=== PATIENT | female | born 1970 | race Caucasian/White ===

== ENCOUNTER 2024-06-23 14:03 | Inpatient (IN) | payer OTHER, SELFPAY ==
[2024-06-23 14:17] VITALS: BP 000/00; PULSE 0; RESP 22; TEMP -17.7; TEMP 0; O2SAT 0; BMI 39.3
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
--- OUTSIDE RECORDS SUMMARY | 2024-06-23 14:25 | XMS_ITS | Clinical Summary ---
Author Organization [facility] Address [address] [place] [address] Phone Care Team Providers Care Motorcycle Service Technician Name Role Phone Unavailable Primary Care Provider Unavailabl e Surgical History Surgery Date Site/Laterality Comments SECTION, LOW TRANSVERSE COLPOSCOPY Medical History Medical History Date Comments Hypertension Nicole's disease Depression Social History Tobacco Use Types Packs/Day Years Used Date Smoking Tobacco: Never Assessed Sex and Gender Information Value Date Recorded Sex Assigned at Not on file Gender Identity Not on file Sexual Orientation Not on file Obstetrics History Plan of Treatment Health Maintenance Due Date Last Done Comments Hepatitis B Vaccines (1 of 3 - 19+ 3-dose series) 1989 Cervical Cancer Screening: Pap Smear 1991 Zoster Vaccines (2 of 2) 09/10/2022 07/16/2022 COVID-19 Vaccine ( - season) 2024 Influenza Vaccine (#1) 2024 , 04/02/2022, 04/26/2021, Additional history exists Colorectal Cancer Screening: Colonoscopy 06/03/2024 Depression Screening 06/03/2024 HIV Screening 06/03/2024 Social Influencers of Health Screening 06/03/2024 DTaP,Tdap,and Td Vaccines (2 - Td or Tdap) 07/30/2024 07/30/2014 Hypertension/CHF/CAD Annual BMP Blood Test 12/24/2024 12/25/2023, 06/06/2022, 08/19/2020, Additional history exists Breast Cancer Screening 11/30/2025 12/01/2023 Cholesterol Screening (Lipid Panel) 12/24/2028 12/25/2023 Hepatitis C Screening Completed 08/19/2020 HIB Vaccines Aged Out No longer eligi ble based on patient's age to complete this topic HPV Vaccines Aged Out No longer eligi ble based on patient's age to complete this topic Hepatitis A Vaccines Aged Out No long er eligible based on patient's age to complete this topic IPV Vaccines Aged Out No longer eligi ble based on patient's age to complete this topic MMR Vaccines Aged Out No longer eligi ble based on patient's age to complete this topic Meningococcal ACWY Vaccine Aged Out N o longer eligible based on patient's age to complete this topic Pneumococcal Vaccine: Pediatrics (0 to 5 Years) and At-Risk Patients (6 to 64 Years) Aged Out No longer eligible based on patient's age to complete this topic RSV Immunization Patients Under 20 months Aged Out No longer eligible based on patient's age to complete this topic Varicella Vaccines Aged Out No longer eligible based on patient's age to complete this topic
[2024-06-23] MEDS: Haloperidol Lactate 5 MG/ML VIAL IM ×2 (14:29)
[2024-06-23] MEDS: LORazepam 2 MG/ML VIAL IM (14:31)
[2024-06-23] MEDS: diphenhydrAMINE HCL 50 MG/ML VIAL IM (14:31)
--- NOTE | 2024-06-23 14:43 | PC.NURSE ---
Spouse, Esther called to leave phone number for staff [phone].
--- NOTE | 2024-06-23 14:44 | PC.NURSE ---
Patient was section-12 brought at 14:05 by ems staff and police also at bedside was provider and chagre nurse as well as this nurse. Patient was verbally and physically aggressive with staff, refusing to cooperate with care. Provider stated patient needed to be restrained and medication administered. 10 mg of haldol, 2 mg of ativan and 50 mg of benadryl was administered IM. Patient was placed in restarints and 1:[address] Skin checks were completed and patients resp were even and unlabored. Patient was offered something to drink as well as bathroom. Patient at this time remains in restraints with 1:1 will continue to monitor. Charge nurse and warehouse technician have been made aware.
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
[2024-06-23 16:31] LABS: MANUAL DIFF FLAG NO
[2024-06-23 16:38] LABS: Basophils Percent Auto 0.2 % (0-2); Eosinophils Absolute Auto 0.1 X10*3/uL (0.0-0.4); Eosinophils Percent Auto 0.7 % (0-4); Hematocrit 39.6 % (37.0-47.0); Hemoglobin 13.6 g/dl (12.0-16.0); Imm Gran Abs Auto 0.06 X10*3/uL (0.00-0.03); Imm Gran Pct Auto 0.4 % (0.0-0.4); Lymphocytes Absolute Auto 1.5 X10*3/uL (1.2-4.9); Mean Corpuscular HGB Conc 34.3 g/dl (31.0-35.0); Mean Corpuscular Hemoglobin 29.2 pg (27.0-33.0); Mean Platelet Volume 9.5 fL (9.4-12.3); Monocytes Absolute Auto 0.8 X10*3/uL (0.1-1.2); Monocytes Percent Auto 5.4 % (2-11); Neutrophils Absolute Auto 12.2 x10*3/uL (2.0-8.3); Neutrophils Percent Auto 83.3 % (45-73); Platelet Count 277 X10*3/uL (160-400); Red Blood Count 4.66 X10*6/uL (4.20-5.50); Red Cell Distribution Width 13.2 % (11.0-16.0); White Blood Count 14.7 X10*3/uL (4.8-10.8)
[2024-06-23 16:38] LABS: Carbon Monoxide POC 2.7 %
[2024-06-23 16:39] LABS: Carbon Monoxide Refer to POC result
--- NOTE | 2024-06-23 16:47 | PC.NURSE ---
restraints removed at 1545 and pt has been calm and cooperative since and currently sleeping
[2024-06-23 16:48] LABS: Amphetamine Screen Urine POSITIVE (Not Detect); Barbiturates, Urine Not Detected (Not Detect); Benzodiazepines Screen Urine Not Detected (Not Detect); Buprenorphine Scr Not Detected (Not Detect); Cannabinoid Screen Urine POSITIVE (Not Detect); Cocaine Screen Urine Not Detected (Not Detect); Fentanyl, urine Not Detected (Not Detect); Methadone Screen, Urine Not Detected (Not Detect); Opiate Screen Urine Not Detected (Not Detect); Oxycodone Screen Urine Not Detected (Not Detect); Phencyclidine Screen Urine Not Detected (Not Detect)
[2024-06-23 17:02] VITALS: BP 115/60; PULSE 70; RESP 14; TEMP 36.6; O2SAT 96
[2024-06-23 17:02] LABS: Alanine Aminotransferase 19 U/L (0-31); Anion Gap 13 (12-20); Aspartate Amino Transferase 23 U/L (5-31); Bilirubin Total 0.3 mg/dL (0.0-1.0); Blood Urea Nitrogen 12 mg/dL (9-16); Calcium 9.4 mg/dL (8.4-10.2); Carbon Dioxide 21 mmol/L (22-29); Chloride 110 mmol/L (96-108); Creatinine Clr Calc Pharmacy 107.9; Estimated Glomerular Filt Rate > 60; Ethanol < 10 mg/dL; Glucose Random 94 mg/dL (60-115); Magnesium 1.9 mg/dL (1.6-2.6); Sodium 140 mmol/L (135-145); Total Protein 7.2 g/dL (6.5-8.0)
[2024-06-23 17:22] LABS: Alkaline Phosphatase 86 U/L (39-117)
--- NOTE | 2024-06-23 20:58 | PHA.MEDREC ---
Pharmacy Consult ? Medication Reconciliation Pharmacy has completed the medication reconciliation. Reviewed med rec done by nursing
[2024-06-24 05:50] VITALS: BP 137/90; PULSE 68; RESP 18; TEMP 36.5; O2SAT 97
[2024-06-24] MEDS: Levothyroxine Sodium 25 MCG TABLET PO (05:50)
--- NOTE | 2024-06-24 05:56 | PC.NURSE ---
Addendum entered by Amira Back RN 06/24/24 06:35: pt evaluated by [facility] on 06/23/24, evaluation in chart. Original Note: pt calm and cooperative, slept well throughout the night, symmetrical rise and fall of chest and unlabored respirations noted. pt did not display any behavioral concerns or symptoms of concern. Plan of care ongoing.
--- NOTE | 2024-06-24 07:04 | PC.NURSE ---
Assumed care of patient at 0645, patient appears to be sleeping, respirations even and unlabored, no apparent distress is noted. Continue plan of care for IPLOC
[2024-06-24 08:27] LABS: Appearance Urine Turbid; Color Urine Yellow; Glucose Urine UA Negative (Negative); Leukocyte Esterase Urine Negative (Negative); Nitrite Urine Negative (Negative); PH 5.5 (5.0-9.0); Specific Gravity - Urine >= 1.030 (1.005-1.025); UMIC TRIGGER UA YES; Urine Blood Negative (Negative); Urine Ketones Negative (Negative); Urine Protein 30 (1+) mg/dL (Neg-Trace)
[2024-06-24 08:37] LABS: Bacteria Urine None Seen (None Seen); RBC Urine 0-2 /HPF (0-2); WBC Urine 0-5 /HPF (0-5)
[2024-06-24] MEDS: DULoxetine HCl 60 MG CAPSULE.DR PO (09:53)
--- NOTE | 2024-06-24 09:57 | PC.NURSE ---
Patient refused most morning medicaitons, states she does not take most of the medications that she is prescribed
--- NOTE | 2024-06-24 09:58 | PC.NURSE ---
Pt noted to have significant swelling and bruising on bilateral wrists. Pt was in handcuffs prior to arrival to the Emergency Department and was subsequently placed in restraints here in the pod. Patient denies significant pain to either wrist, ROM present in both. Patient denies pain upon palpation. Patient more concerned about discharge
--- NOTE | 2024-06-24 11:06 | PC.NURSE ---
Patient refused to do EKG
--- NOTE | 2024-06-24 11:22 | MHC.CARE ---
Pt will be an inpatient bedsearch.
[2024-06-24] MEDS: Gabapentin 100 MG CAPSULE PO (15:44)
--- NOTE | 2024-06-24 16:29 | PC.NURSE ---
Pt given PRN Gabapentin in preparation to go upstairs, FLORENTIN Solo aware
[2024-06-24 16:40] VITALS: BP 153/109; PULSE 90; RESP 18; TEMP 36.2; O2SAT 99
[2024-06-24] MEDS: Acetaminophen 325 MG TABLET 650 MG PO (17:06)
[2024-06-24 17:54] VITALS: BMI 37.6
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
[2024-06-24 20:00] VITALS: BP 149/80; PULSE 85; TEMP 36.4; O2SAT 98
[2024-06-25] MEDS: Levothyroxine Sodium 25 MCG TABLET PO (07:08)
[2024-06-25 08:00] VITALS: BP 139/96; PULSE 93; RESP 18; TEMP 36.4; O2SAT 98
[2024-06-25 08:16] LABS: Estimated Average Glucose 105 mg/dL; Hemoglobin A1C 136.4316 umol/L; Hemoglobin A1c % 5.3 % (<6.0); Total Hemoglobin (HGBA1C) 4020.1388 umol/L
[2024-06-25 08:24] LABS: Cholesterol 157 mg/dL (<200); HDL Cholesterol 56 mg/dL (>40); LDL Cholesterol Calculated 69 mg/dL (<100); Magnesium 1.9 mg/dL (1.6-2.6); Triglycerides 160 mg/dL (<150)
[2024-06-25 08:41] LABS: Free T4 (Free Thyroxine) 1.33 ng/dL (0.71-1.85); Thyroid Stimulating Hormone 3.84 uIU/mL (0.32-4.0)
[2024-06-25 08:53] LABS: Folate 10.1 ng/mL (> or = 4.0); Vitamin B12 475 pg/mL (200-900)
[2024-06-25] MEDS: DULoxetine HCl 60 MG CAPSULE.DR PO (09:07)
[2024-06-25] MEDS: Amphetamine Mixed Salts 20 MG TABLET PO (09:07)
[2024-06-25] MEDS: Flu Vacc TS2024-25(6mos up)/PF 0.5 ML SYRINGE IM (12:17)
[2024-06-25] MEDS: Acetaminophen 325 MG TABLET 650 MG PO (12:28)
[2024-06-25] MEDS: Gabapentin 100 MG CAPSULE PO (13:21)
[2024-06-25] MEDS: LORazepam 1 MG TABLET PO (13:35)
--- NOTE | 2024-06-25 14:06 | HO.PSYADMNOT ---
HPI Date of Service: 06/25/24 Chief Complaint: SECTION 12 SI UNCOOPERATIVE Sources of Information: patient interviewed and crisis/core team assessment reviewed HPI Narrative: Pt is a 51 yo female with hx of depression who presents to ED after [facility] (and ) had concerns for SI. Pt reports that she's been depressed and anxious over past months, both worsening post-Trump election. She endorses decreased energy, interest, appetite, sleep but denies any SI. Anxiety became overwhelming past weeks after Trump took office as she's worried about the rights of LGBT community which include her children. She says she agreed to go to [facility] for help with medication changes; she says her wanted her to go to [facility] due to some mistaken idea that she was suicidal, though patient is adamant she has no idea why (other than her wifes chronic anxiety). Pt says at [facility] the staff and insisted that she was suicidal and called 911 for her to go to ED. Patient became irate and refused to go; police insisted and pt was restrained to get her to ED and once she got to ED. Pt agrees that possibly, in the heat of anger with police she may have said something suicidal regarding her fathers gun...however she says she was not actually suicidal, was never feeling this way and would never kill herself, loving her son and family. She flately denies she made any other SI statements at all and wants discharge. Denies drug/alcohol. Collateral reports pt sent several text messages to family and friends, and endorsed plan to OD on medications, poisoning by carbon monoxide, and/or shooting self with her father's gun. Per report, collateral obtained with pt's , who stated that pt began to decompensate about two months ago surrounding the election, which worsened following the election results. Per report, pt fearful for her safety, as well as the safety of her and transgender child. Pt reportedly made statements of fear that her family would be sent to a concentration camp. In ED, patient told staff regarding SI, that she had some thoughts a few days ago but stated I don't anymore. 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 one bio son 19 3 step kids 22, 21, 13 Substance History: denies Trauma History: deferred Diagnostics Vital Signs (24Hr): Vital Signs - 24 hr 06/24/24 16:40 06/24/24 20:00 06/25/24 08:00 Temperature 97.2 F 97.5 F 97.5 F Pulse Rate 90 85 93 Respiratory Rate 18 18 Blood Pressure 153/109 H 149/80 H 139/96 H Pulse Oximetry 99 98 98 Oxygen Delivery Method Room Air Room Air Room Air BMI result Body Mass Index 37.6 Labs 06/23/24 16:24 06/23/24 16:24 Labs: Laboratory Results - last 48 hr 06/23/24 06/23/24 06/23/24 16:10 16:24 16:30 WBC 14.7 H RBC 4.66 Hgb 13.6 Hct 39.6 MCV 85.0 MCH 29.2 MCHC 34.3 RDW 13.2 Plt Count 277 MPV 9.5 Immature Gran % (Auto) 0.4 Neut % (Auto) 83.3 H Lymph % (Auto) 10.0 L [place] % (Auto) 5.4 Eos % (Auto) 0.7 Baso % (Auto) 0.2 Lymph # (Auto) 1.5 [place] # (Auto) 0.8 Eos # (Auto) 0.1 Baso # (Auto) 0.0 Abs Immat Gran (auto) 0.06 H Absolute Neuts (auto) 12.2 H Absolute Nucleated RBC 0.000 Nucleated RBC % (auto) 0.0 Carboxyhemoglobin % 2.7 Sodium 140 Potassium 4.0 Chloride 110 H Carbon Dioxide 21 L Anion Gap 13 BUN 12 Creatinine 0.65 Estim Creat Clear Calc 107.9 Estimated GFR > 60 Random Glucose 94 Estimat Average Glucose Hemoglobin A1c % Calcium 9.4 Magnesium 1.9 Total Bilirubin 0.3 AST 23 ALT 19 Alkaline Phosphatase 86 Total Protein 7.2 Albumin 4.0 Triglycerides Cholesterol LDL Cholesterol, Calc HDL Cholesterol Vitamin B12 Folate TSH Free T4 Urine Color Yellow Urine Appearance Turbid Urine pH 5.5 Ur Specific [place] >= 1.030 H Urine Protein 30 (1+) H Urine Glucose (UA) Negative Urine Ketones Negative Urine Blood Negative Urine Nitrite Negative Ur Leukocyte Esterase Negative Urine RBC 0-2 Urine WBC 0-5 Ur Squamous Epith Cells 6-10 Urine Bacteria None Seen Hyaline Casts 3-5 Urine Opiates Screen Not Detected Ur Buprenorphine Scrn Not Detected Ur Oxycodone Screen Not Detected Urine Methadone Screen Not Detected Urine Fentanyl Screen Not Detected Ur Barbiturates Screen Not Detected Ur Phencyclidine Scrn Not Detected Ur Amphetamines Screen POSITIVE H U Benzodiazepines Scrn Not Detected Urine Cocaine Screen Not Detected U Marijuana (THC) Screen POSITIVE H Ethyl Alcohol < 10 06/25/24 07:47 WBC RBC Hgb Hct MCV MCH MCHC RDW Plt Count MPV Immature Gran % (Auto) Neut % (Auto) Lymph % (Auto) [place] % (Auto) Eos % (Auto) Baso % (Auto) Lymph # (Auto) [place] # (Auto) Eos # (Auto) Baso # (Auto) Abs Immat Gran (auto) Absolute Neuts (auto) Absolute Nucleated RBC Nucleated RBC % (auto) Carboxyhemoglobin % Sodium Potassium Chloride Carbon Dioxide Anion Gap BUN Creatinine Estim Creat Clear Calc Estimated GFR Random Glucose Estimat Average Glucose 105 Hemoglobin A1c % 5.3 Calcium Magnesium 1.9 Total Bilirubin AST ALT Alkaline Phosphatase Total Protein Albumin Triglycerides 160 H Cholesterol 157 LDL Cholesterol, Calc 69 HDL Cholesterol 56 Vitamin B12 475 Folate 10.1 TSH 3.84 Free T4 1.33 Urine Color Urine Appearance Urine pH Ur Specific [place] Urine Protein Urine Glucose (UA) Urine Ketones Urine Blood Urine Nitrite Ur Leukocyte Esterase Urine RBC Urine WBC Ur Squamous Epith Cells Urine Bacteria Hyaline Casts Urine Opiates Screen Ur Buprenorphine Scrn Ur Oxycodone Screen Urine Methadone Screen Urine Fentanyl Screen Ur Barbiturates Screen Ur Phencyclidine Scrn Ur Amphetamines Screen U Benzodiazepines Scrn Urine Cocaine Screen U Marijuana (THC) Screen Ethyl Alcohol Meds/Allergies Meds Home Medications ?Medication ?Instructions ?Recorded ?Confirmed ?Type celecoxib 200 mg capsule 200 mg PO DAILY 06/23/24 06/23/24 History dextroamphetamine-amphetamine 20 1 tab PO BID 06/23/24 06/23/24 History mg tablet duloxetine 60 mg capsule,delayed 60 mg PO DAILY 06/23/24 06/23/24 History release gabapentin 100 mg capsule 100 mg PO BID PRN Pain 06/23/24 06/23/24 History hydroxyzine HCl 50 mg tablet 50 mg PO DAILY PRN Anxiety 06/23/24 06/23/24 History levothyroxine 25 mcg tablet 25 mcg PO DAILY 06/23/24 06/23/24 History semaglutide (weight loss) 0.25 0.25 mg subcut QWEEK 06/23/24 06/23/24 History mg/0.5 mL subcutaneous pen injector (Wegovy) quetiapine 50 mg tablet 50 mg PO BEDTIME 06/25/24 06/25/24 History Allergies Allergies Allergy/AdvReac Type Severity Reaction Status Date / Time No Known Drug Allergies Allergy Unknown UNKNOWN Verified 06/23/24 14:21 [NO KNOWN DRUG ALLERGIES] Mental Status Exam Mental Status Exam Narrative: Pt is alert and oriented; behavior is irritable, cooperative, calm; patient is not in distress; dressed in casual attire with unkempt hair but adequate hygiene; mood is described as irritable and affect congruent,constricted; eye contact appropriate; Speech is normal rate, volume and prosody and not pressured; no psychomotor agitation/retardation present; thought process is organized and goal directed; Thought content is on wrongness of this admission; fears of Trump administration, discharge; tx; otherwise pertinent to relevant topics and without any delusional content, paranoid ideations or grandiosity; denies any SI/HI. There is no evidence of perceptual disturbance. Patients insight and judgment impaired. Assessment & Plan Assessment & Plan (1) MDD (major depressive disorder), recurrent severe, without psychosis: Status: Acute Code(s): F33.2 - Major depressive disorder, recurrent severe without psychotic features Plan HPI: Pt is a 51 yo female with hx of depression who presents to ED after [facility] (and ) had concerns for SI. Pt reports that she's been depressed and anxious over past months, both worsening post-Trump election. She endorses decreased energy, interest, appetite, sleep but denies any SI. Anxiety became overwhelming past weeks after Trump took office as she's worried about the rights of LGBT community which include her children. She says she agreed to go to [facility] for help with medication changes; she says her wanted her to go to [facility] due to some mistaken idea that she was suicidal, though patient is adamant she has no idea why (other than her wifes chronic anxiety). Pt says at [facility] the staff and insisted that she was suicidal and called 911 for her to go to ED. Patient became irate and refused to go; police insisted and pt was restrained to get her to ED and once she got to ED. Pt agrees that possibly, in the heat of anger with police she may have said something suicidal regarding her fathers gun...however she says she was not actually suicidal, was never feeling this way and would never kill herself, loving her son and family. She flately denies she made any other SI statements at all and wants discharge. Denies drug/alcohol. Collateral reports pt sent several text messages to family and friends, and endorsed plan to OD on medications, poisoning by carbon monoxide, and/or shooting self with her father's gun. Per report, collateral obtained with pt's , who stated that pt began to decompensate about two months ago surrounding the election, which worsened following the election results. Per report, pt fearful for her safety, as well as the safety of her and transgender child. Pt reportedly made statements of fear that her family would be sent to a concentration camp. In ED, patient told staff regarding SI, that she had some thoughts a few days ago but stated I don't anymore. Impression: pt adamantly denies any recent or past SI. She maintains that her partner has misinterpreted and grossly exaggerating anything patient may have said. She agrees she struggles with depression/anxiety but as not SI wants discharge and to work out her treatment w/ outpt providers. Pt is very unhappy with staff on unit feeling ignored and uncared for. Pt does give verbal and written permission to discuss case with her and mother. PLAN: 3 day q15 min continue home med regimen will seek collateral Patient educated on: diagnosis and medication risk/benefits Informed Consent: understands and further education needed Reason for continued inpatient stay Substantial Risk for: rapid decompensation Statement Statement: I have reviewed the history and physical and performed a pertinent examination on my patient. No changes have occurred unless specified. If the History and Physical was not performed prior to admission, the Hospitalist's service will be consulted for completing the admission physical. Time Spent With Patient Time: Total time managing care of this patient today ____ minutes.
[2024-06-25 15:51] VITALS: BP 134/92
[2024-06-25] MEDS: cloNIDine HCL 0.1 MG TABLET PO ×2 (15:51→22:09)
[2024-06-25 19:51] VITALS: BP 152/93; PULSE 84; TEMP 36.8; O2SAT 96
[2024-06-25] MEDS: QUEtiapine Fumarate 50 MG TABLET PO (22:08)
[2024-06-25 22:09] VITALS: BP 154/90
[2024-06-25] MEDS: traZODone HCL 50 MG TABLET PO (22:09)
[2024-06-26] MEDS: Acetaminophen 325 MG TABLET 650 MG PO (06:55)
[2024-06-26 08:00] VITALS: BP 95/53; PULSE 72; RESP 16; TEMP 36.4; O2SAT 96
[2024-06-26] MEDS: DULoxetine HCl 60 MG CAPSULE.DR PO (09:04)
[2024-06-26] MEDS: Amphetamine Mixed Salts 20 MG TABLET PO ×2 (09:04→15:02)
[2024-06-26 09:05] VITALS: BP 128/84
[2024-06-26] MEDS: Valsartan 80 MG TABLET PO (09:05)
[2024-06-26 09:25] VITALS: BP 128/85
[2024-06-26] MEDS: cloNIDine HCL 0.1 MG TABLET PO ×4 (09:25→20:57)
--- NOTE | 2024-06-26 10:08 | P.PNPSI_ITS ---
Subjective Subjective Date of Service: 06/26/24 Reason For Visit: SECTION 12 SI UNCOOPERATIVE Interim History: Patient; discussed with team Patient much more able and willing to engage, polite, forthcoming. Discussed more of the events leading up to this admission and her very deep worries and concerns about being heavily discriminated against in the current political atmosphere. Discussed her intense reactions to family who had a strong political persuasion which left patient feeling on cared about. She acknowledges she texted family members about it. She feels supported by her father but his healthcare issues, lung cancer are contributing to patient's stress. Patient decided to remain on the unit longer for treatment, very much wanting help with medications. Reviewed medications, history and patient agreed that increasing Cymbalta was likely the best option at this time. Also agreed to get off Abilify and Seroquel; instead will try trazodone for sleep and Zyprexa as a p.r.n. if she feels on the verge of getting out of control; also clonidine for sleep and moderate anxiety. Discussed work which patient very much enjoys and feels good at and has been successful; likes her coworkers. Patient feels that at work she is able to focus on the task at hand and gets a temporary reprieve from worries. Medication history Zoloft: Jittery Prozac 80 mg worked well for 20 years but then no longer was effective; has been off for 45 years. Did cause excessive sweatiness Mental Status Exam Mental Status Exam Narrative: Pt is alert and oriented; behavior is calm, cooperative, wanting to engage; patient is not in distress; dressed in casual attire with unkempt hair but adequate hygiene; mood is described as a little better and affect congruent,constricted, but more calm; eye contact appropriate; Speech is normal rate, volume and prosody and not pressured; no psychomotor agitation/retardation present; thought process is organized and goal directed; Thought content is dealing with anxious and depressive symptoms; fears of current political atmosphere; tx; otherwise pertinent to relevant topics and without any delusional content, paranoid ideations or grandiosity; denies any SI/HI. Denies AVH and there is no evidence of perceptual disturbance. Patients insight and judgment impaired but improving. Diagnostics Vital Signs (24Hr): Vital Signs - 24 hr 06/25/24 15:51 06/25/24 19:51 06/25/24 22:09 Temperature 98.2 F Pulse Rate 84 Blood Pressure 134/92 H 152/93 H 154/90 H Pulse Oximetry 96 Oxygen Delivery Method Room Air 06/26/24 09:05 06/26/24 09:25 Temperature Pulse Rate Blood Pressure 128/84 128/85 Pulse Oximetry Oxygen Delivery Method BMI result Body Mass Index 37.6 Labs 06/23/24 16:24 06/23/24 16:24 Labs: Laboratory Results - last 48 hr 06/25/24 07:47 Estimat Average Glucose 105 Hemoglobin A1c % 5.3 Magnesium 1.9 Triglycerides 160 H Cholesterol 157 LDL Cholesterol, Calc 69 HDL Cholesterol 56 Vitamin B12 475 Folate 10.1 TSH 3.84 Free T4 1.33 Medications Medications Current Medications Acetaminophen (Acetaminophen 325 Mg Tablet) 650 mg PO Q6H PRN PRN Reason: Headache/Pain Mild Scale (1-3) Last Admin: 06/26/24 06:55 Dose: 650 mg Al Hydroxide/Mg Hydroxide (Magnesium Hydrox/Alum Hydrox 30 Ml Oral.Susp) 30 ml PO Q6H PRN PRN Reason: Heartburn/Nausea Amphetamine/Dextroamphetamine (Amphetamine Mixed Salts 20 Mg Tablet) 20 mg PO BID@0900,1500 [facility] Last Admin: 06/26/24 09:04 Dose: 20 mg Celecoxib (Celecoxib 200 Mg Capsule) 200 mg PO DAILY [facility] Last Admin: 06/26/24 09:40 Dose: Not Given Clonidine HCl (Clonidine Hcl 0.1 Mg Tablet) 0.1 mg PO Q4H PRN; Protocol PRN Reason: moderate anxiety Last Admin: 06/26/24 09:25 Dose: 0.1 mg Duloxetine HCl (Duloxetine Hcl 60 Mg Capsule.Dr) 60 mg PO DAILY [facility] Last Admin: 06/26/24 09:04 Dose: 60 mg Escitalopram Oxalate (Escitalopram Oxalate 5 Mg Tablet) 5 mg PO DAILY [facility] Last Admin: 06/26/24 09:40 Dose: Not Given Gabapentin (Gabapentin 100 Mg Capsule) 100 mg PO BID PRN PRN Reason: Pain, Moderate(Pain Scale 4-6) Last Admin: 06/25/24 13:21 Dose: 100 mg Hydroxyzine HCl (Hydroxyzine Hcl 50 Mg Tablet) 50 mg PO DAILY PRN PRN Reason: Anxiety Hydroxyzine HCl (Hydroxyzine Hcl 25 Mg Tablet) 25 mg PO Q6H PRN PRN Reason: Anxiety Levothyroxine Sodium (Levothyroxine Sodium 25 Mcg Tablet) 25 mcg PO BEDTIME [facility] Magnesium Hydroxide (Milk Of Magnesia 30 Ml Oral.Susp) 30 ml PO DAILY PRN PRN Reason: Constipation Quetiapine Fumarate (Quetiapine Fumarate 50 Mg Tablet) 50 mg PO BEDTIME [facility] Last Admin: 06/25/24 22:08 Dose: 50 mg Trazodone HCl (Trazodone Hcl 50 Mg Tablet) 50 mg PO BEDTIME MRX1 PRN PRN Reason: Insomnia Last Admin: 06/25/24 22:09 Dose: 50 mg Valsartan (Valsartan 80 Mg Tablet) 80 mg PO DAILY [facility] Last Admin: 06/26/24 09:05 Dose: 80 mg Allergies Allergies Allergy/AdvReac Type Severity Reaction Status Date / Time No Known Drug Allergies Allergy Unknown UNKNOWN Verified 06/23/24 14:21 [NO KNOWN DRUG ALLERGIES] Assessment & Plan Assessment & Plan (1) MDD (major depressive disorder), recurrent severe, without psychosis: Status: Acute Code(s): F33.2 - Major depressive disorder, recurrent severe without psychotic features (2) PTSD (post-traumatic stress disorder): Status: Acute Code(s): F43.10 - Post-traumatic stress disorder, unspecified Plan HPI: Pt is a 51 yo female with hx of depression who presents to ED after [facility] (and ) had concerns for SI. Pt reports that she's been depressed and anxious over past months, both worsening post-[place] election. She endorses decreased energy, interest, appetite, sleep but denies any SI. Anxiety became overwhelming past weeks after [place] took office as she's worried about the rights of LGBT community which include her children. She says she agreed to go to [facility] for help with medication changes; she says her wanted her to go to [facility] due to some mistaken idea that she was suicidal, though patient is adamant she has no idea why (other than her wifes chronic anxiety). Pt says at [facility] the staff and insisted that she was suicidal and called 911 for her to go to ED. Patient became irate and refused to go; police insisted and pt was restrained to get her to ED and once she got to ED. Pt agrees that possibly, in the heat of anger with police she may have said something suicidal regarding her fathers gun...however she says she was not actually suicidal, was never feeling this way and would never kill herself, loving her son and family. She flately denies she made any other SI statements at all and wants discharge. Denies drug/alcohol. Collateral reports pt sent several text messages to family and friends, and endorsed plan to OD on medications, poisoning by carbon monoxide, and/or shooting self with her father's gun. Per report, collateral obtained with pt's , who stated that pt began to decompensate about two months ago surrounding the election, which worsened following the election results. Per report, pt fearful for her safety, as well as the safety of her and transgender child. Pt reportedly made statements of fear that her family would be sent to a concentration camp. In ED, patient told staff regarding SI, that she had some thoughts a few days ago but stated I don't anymore. Impression: pt adamantly denies any recent or past SI. She maintains that her partner has misinterpreted and grossly exaggerating anything patient may have said. She agrees she struggles with depression/anxiety but as not SI wants discharge and to work out her treatment w/ outpt providers. Pt is very unhappy with staff on unit feeling ignored and uncared for. Pt does give verbal and written permission to discuss case with her and mother. Hospital course: 2/ Patient much more able and willing to engage, polite, forthcoming. Discussed more of the events leading up to this admission and her very deep worries and concerns about being heavily discriminated against in the current political atmosphere. Discussed her intense reactions to family who had a strong political persuasion which left patient feeling on cared about. She acknowledges she texted family members about it; also acknowledged texting things such as people would be better off without her and what is the purpose of life; patient said she is not sure exactly what she meant by this but she was very depressed, sad and extremely anxious and angry at her family members for what she feels was ignoring her vulnerability and current administration; she maintains she was not ever intending suicide. She denies any SI at all. She feels supported by her father but his healthcare issues, lung cancer are contributing to patient's stress. Patient decided to remain on the unit longer for treatment, very much wanting help with medications. Reviewed medications, history and patient agreed that increasing Cymbalta was likely the best option at this time. Also agreed to get off Abilify and Seroquel; instead will try trazodone for sleep and Zyprexa as a p.r.n. if she feels on the verge of getting out of control; also clonidine for sleep and moderate anxiety. -collateral from obtained and patient was getting out of control; shared about texting family provocative comments. Does not think that she is going to harm herself Discussed work which patient very much enjoys and feels good at and has been successful; likes her coworkers. Patient feels that at work she is able to focus on the task at hand and gets a temporary reprieve from worries. PLAN: CV q15 min Increase Cymbalta to 90 mg Trazodone scheduled for sleep Clonidine 0.1 mg q.h.s. for insomnia Clonidine p.r.n. for mild anxiety Zyprexa 5 mg p.r.n. for agitation AURORA Abileslye SIMON Seroquel Medical Equipment Repair Technician and patient discussed risks/side effects of current medication regimen which patient understands and with which she wants to continue Medication history Lexapro: Brains zaps Zoloft: Jittery Prozac 80 mg worked well for 20 years but then no longer was effective; has been off for 45 years. Did cause excessive sweatiness Patient educated on: diagnosis, medication risk/benefits and therapeutic strategies Informed Consent: understands Reason for continued inpatient stay Substantial Risk for: rapid decompensation Time Spent With Patient Time: Total time managing care of this patient today ____ minutes.
--- NOTE | 2024-06-26 10:35 | ECG_ITS ---
Test Reason : check qtc Blood Pressure : */* mmHG Vent. Rate : 78 BPM Atrial Rate : 78 BPM P-R Int : 148 ms QRS Dur : 78 ms QT Int : 382 ms P-R-T Axes : 49 3 31 degrees QTcB Int : 435 ms Normal sinus rhythm Normal ECG No previous ECGs available Referred By: Anjana Royal Electronically Signed By: Kenneth South
[2024-06-26 12:59] VITALS: BP 127/90
[2024-06-26 18:32] VITALS: BP 124/57
[2024-06-26 20:00] VITALS: RESP 16
[2024-06-26] MEDS: traZODone HCL 50 MG TABLET PO (20:57)
[2024-06-26] MEDS: Levothyroxine Sodium 25 MCG TABLET PO (20:57)
[2024-06-27] MEDS: OLANZapine 5 MG TABLET PO ×2 (00:08→22:53)
[2024-06-27 07:00] VITALS: BMI 37.5
[2024-06-27 08:00] VITALS: BP 127/61; PULSE 67; RESP 18; TEMP 36.1; O2SAT 97
[2024-06-27] MEDS: DULoxetine HCl 30 MG CAPSULE.DR 90 MG PO (08:33)
[2024-06-27] MEDS: Amphetamine Mixed Salts 20 MG TABLET PO ×2 (08:33→14:18)
[2024-06-27] MEDS: Valsartan 80 MG TABLET PO (08:33)
[2024-06-27] MEDS: cloNIDine HCL 0.1 MG TABLET PO ×4 (08:38→21:55)
[2024-06-27 12:50] VITALS: BP 132/72
--- NOTE | 2024-06-27 17:21 | P.PNPSI_ITS ---
Subjective Subjective Date of Service: 06/27/24 Reason For Visit: SECTION 12 SI UNCOOPERATIVE Interim History: Met with patient; discussed with team mood is better, but still pretty depressed and anxious. However very willing to work on coping skills and is accepting and inquisitive regarding treatment. Discussed more of history. Patient having trouble sleeping and agreed to increase trazodone to 100mg History of lithium: felt like a zombie Mental Status Exam Mental Status Exam Narrative: Pt is alert and oriented; behavior is calm, cooperative, more engaged, more friendly; patient is not in distress; dressed in casual attire with adequate hygiene and grooming; mood is described as a little better and affect congruent, calmer, brighter; eye contact appropriate; Speech is normal rate, volume and prosody and not pressured; no psychomotor agitation/retardation present; thought process is organized and goal directed; Thought content is dealing with anxious and depressive symptoms; fears of current political atmosphere; tx; otherwise pertinent to relevant topics and without any delusional content, paranoid ideations or grandiosity; denies any SI/HI. Denies AVH and there is no evidence of perceptual disturbance. Patients insight and judgment impaired but improving. Diagnostics Vital Signs (24Hr): Vital Signs - 24 hr 06/26/24 18:32 06/26/24 20:00 06/27/24 08:00 Temperature 96.9 F Pulse Rate 67 Respiratory Rate 16 18 Blood Pressure 124/57 L 127/61 Pulse Oximetry 97 Oxygen Delivery Method Room Air 06/27/24 12:50 Temperature Pulse Rate Respiratory Rate Blood Pressure 132/72 Pulse Oximetry Oxygen Delivery Method BMI result Body Mass Index 37.5 Labs 06/23/24 16:24 06/23/24 16:24 Medications Medications Current Medications Acetaminophen (Acetaminophen 325 Mg Tablet) 650 mg PO Q6H PRN PRN Reason: Headache/Pain Mild Scale (1-3) Last Admin: 06/26/24 06:55 Dose: 650 mg Al Hydroxide/Mg Hydroxide (Magnesium Hydrox/Alum Hydrox 30 Ml Oral.Susp) 30 ml PO Q6H PRN PRN Reason: Heartburn/Nausea Amphetamine/Dextroamphetamine (Amphetamine Mixed Salts 20 Mg Tablet) 20 mg PO BID@0900,1500 [facility] Last Admin: 06/27/24 14:18 Dose: 20 mg Celecoxib (Celecoxib 200 Mg Capsule) 200 mg PO DAILY [facility] Last Admin: 06/27/24 08:35 Dose: Not Given Clonidine HCl (Clonidine Hcl 0.1 Mg Tablet) 0.1 mg PO Q4H PRN; Protocol PRN Reason: moderate anxiety Last Admin: 06/27/24 12:50 Dose: 0.1 mg Clonidine HCl (Clonidine Hcl 0.1 Mg Tablet) 0.1 mg PO BEDTIME [facility]; Protocol Last Admin: 06/26/24 20:57 Dose: 0.1 mg Duloxetine HCl (Duloxetine Hcl 30 Mg Capsule.Dr) 90 mg PO DAILY [facility] Last Admin: 06/27/24 08:33 Dose: 90 mg Levothyroxine Sodium (Levothyroxine Sodium 25 Mcg Tablet) 25 mcg PO BEDTIME [facility]YAM Last Admin: 06/26/24 20:57 Dose: 25 mcg Magnesium Hydroxide (Milk Of Magnesia 30 Ml Oral.Susp) 30 ml PO DAILY PRN PRN Reason: Constipation Olanzapine (Olanzapine 5 Mg Tablet) 5 mg PO TID PRN PRN Reason: agitation/anger Last Admin: 06/27/24 00:08 Dose: 5 mg Trazodone HCl (Trazodone Hcl 50 Mg Tablet) 50 mg PO BEDTIME PRN PRN Reason: continued insomnia Trazodone HCl (Trazodone Hcl 50 Mg Tablet) 50 mg PO BEDTIME [facility]YAM Last Admin: 06/26/24 20:57 Dose: 50 mg Valsartan (Valsartan 80 Mg Tablet) 80 mg PO DAILY [facility] Last Admin: 06/27/24 08:33 Dose: 80 mg Allergies Allergies Allergy/AdvReac Type Severity Reaction Status Date / Time No Known Drug Allergies Allergy Unknown UNKNOWN Verified 06/23/24 14:21 [NO KNOWN DRUG ALLERGIES] Assessment & Plan Assessment & Plan (1) MDD (major depressive disorder), recurrent severe, without psychosis: Status: Acute Code(s): F33.2 - Major depressive disorder, recurrent severe without psychotic features Plan HPI: Pt is a 51 yo female with hx of depression who presents to ED after [facility] (and ) had concerns for SI. Pt reports that she's been depressed and anxious over past months, both worsening post-Trump election. She endorses decreased energy, interest, appetite, sleep but denies any SI. Anxiety became overwhelming past weeks after Trump took office as she's worried about the rights of LGBT community which include her children. She says she agreed to go to [facility] for help with medication changes; she says her wanted her to go to [facility] due to some mistaken idea that she was suicidal, though patient is adamant she has no idea why (other than her wifes chronic anxiety). Pt says at [facility] the staff and insisted that she was suicidal and called 911 for her to go to ED. Patient became irate and refused to go; police insisted and pt was restrained to get her to ED and once she got to ED. Pt agrees that possibly, in the heat of anger with police she may have said something suicidal regarding her fathers gun...however she says she was not actually suicidal, was never feeling this way and would never kill herself, loving her son and family. She flately denies she made any other SI statements at all and wants discharge. Denies drug/alcohol. Collateral reports pt sent several text messages to family and friends, and endorsed plan to OD on medications, poisoning by carbon monoxide, and/or shooting self with her father's gun. Per report, collateral obtained with pt's , who stated that pt began to decompensate about two months ago surrounding the election, which worsened following the election results. Per report, pt fearful for her safety, as well as the safety of her and transgender child. Pt reportedly made statements of fear that her family would be sent to a concentration camp. In ED, patient told staff regarding SI, that she had some thoughts a few days ago but stated I don't anymore. Impression: pt adamantly denies any recent or past SI. She maintains that her partner has misinterpreted and grossly exaggerating anything patient may have said. She agrees she struggles with depression/anxiety but as not SI wants discharge and to work out her treatment w/ outpt providers. Pt is very unhappy with staff on unit feeling ignored and uncared for. Pt does give verbal and written permission to discuss case with her and mother. Hospital course: 2/5 Patient much more able and willing to engage, polite, forthcoming. Discussed more of the events leading up to this admission and her very deep worries and concerns about being heavily discriminated against in the current political atmosphere. Discussed her intense reactions to family who had a strong political persuasion which left patient feeling on cared about. She acknowledges she texted family members about it; also acknowledged texting things such as people would be better off without her and what is the purpose of life; patient said she is not sure exactly what she meant by this but she was very depressed, sad and extremely anxious and angry at her family members for what she feels was ignoring her vulnerability and current administration; she maintains she was not ever intending suicide. She denies any SI at all. She feels supported by her father but his healthcare issues, lung cancer are contributing to patient's stress. Patient decided to remain on the unit longer for treatment, very much wanting help with medications. Reviewed medications, history and patient agreed that increasing Cymbalta was likely the best option at this time. Also agreed to get off Abilify and Seroquel; instead will try trazodone for sleep and Zyprexa as a p.r.n. if she feels on the verge of getting out of control; also clonidine for sleep and moderate anxiety. -collateral from obtained and patient was getting out of control; shared about texting family provocative comments. Does not think that she is going to harm herself -Discussed work which patient very much enjoys and feels good at and has been successful; likes her coworkers. Patient feels that at work she is able to focus on the task at hand and gets a temporary reprieve from worries. 2/6 mood is better, but still pretty depressed and anxious. However very willing to work on coping skills and is accepting and inquisitive regarding treatment. Discussed more of history. Patient having trouble sleeping and agreed to increase trazodone to 100mg PLAN: CV q15 min Increase Cymbalta to 90 mg Trazodone scheduled for sleep Clonidine 0.1 mg q.h.s. for insomnia Clonidine p.r.n. for mild anxiety Zyprexa 5 mg p.r.n. for agitation AURORA Mcduffie DC Seroquel [employer] and patient discussed risks/side effects of current medication regimen which patient understands and with which she wants to continue Medication history Lexapro: Brains zaps Zoloft: Jittery Prozac 80 mg worked well for 20 years but then no longer was effective; has been off for 45 years. Did cause excessive sweatiness History of lithium: Took away depression but left patient feeling like a zombie Patient educated on: diagnosis, medication risk/benefits and therapeutic strategies Informed Consent: understands Reason for continued inpatient stay Substantial Risk for: stable for discharge, rapid decompensation and med/psych decompensation Time Spent With Patient Time: Total time managing care of this patient today ____ minutes.
[2024-06-27 18:24] VITALS: BP 119/76
[2024-06-27 19:40] VITALS: BP 120/71; PULSE 97; RESP 16; TEMP 36.9; O2SAT 97
[2024-06-27 21:55] VITALS: BP 120/71
[2024-06-27] MEDS: traZODone HCL 100 MG TABLET PO (21:56)
[2024-06-27] MEDS: Levothyroxine Sodium 25 MCG TABLET PO (21:56)
[2024-06-28 08:00] VITALS: BP 124/75; PULSE 64; TEMP 36.4; O2SAT 95
[2024-06-28] MEDS: cloNIDine HCL 0.1 MG TABLET PO ×4 (08:47→21:01)
[2024-06-28] MEDS: Valsartan 80 MG TABLET PO (08:47)
[2024-06-28] MEDS: DULoxetine HCl 30 MG CAPSULE.DR 90 MG PO (08:47)
[2024-06-28] MEDS: Amphetamine Mixed Salts 20 MG TABLET PO ×2 (08:47→15:09)
[2024-06-28 12:47] VITALS: BP 102/63
[2024-06-28 16:43] VITALS: BP 121/78
[2024-06-28 19:48] VITALS: BP 120/62; PULSE 80; RESP 18; TEMP 37.1; O2SAT 98
[2024-06-28] MEDS: Levothyroxine Sodium 25 MCG TABLET PO (21:01)
[2024-06-28] MEDS: traZODone HCL 100 MG TABLET PO (21:01)
--- NOTE | 2024-06-28 21:22 | P.PNPSI_ITS ---
Subjective Subjective Date of Service: 06/28/24 Reason For Visit: SECTION 12 SI UNCOOPERATIVE Interim History: Met with patient; discussed with team Patient feels she is doing much better; able to sleep last night. Thinking a lot about her feelings and thoughts and re considering her perspective on some of her relationships. Engaged with residential mortgage underwriter and CBT exercise which resonated. Mental Status Exam Mental Status Exam Narrative: Pt is alert and oriented; behavior is cooperative, friendly and calm; patient is not in distress; dressed in casual attire, with adequate hygiene and grooming; mood is described as good and affect congruent brighter, calm; eye contact appropriate; Speech is normal rate, volume and prosody and not pressured; no psychomotor agitation/retardation present; thought process is organized and goal directed; Thought content is on tx; otherwise pertinent to relevant topics and without any delusional content, paranoid ideations or grandiosity; denies any SI/HI. There is no evidence of perceptual disturbance. Patients insight and judgment appear intact. Diagnostics Vital Signs (24Hr): Vital Signs - 24 hr 06/27/24 21:55 06/28/24 08:00 06/28/24 12:47 Temperature 97.6 F Pulse Rate 64 Respiratory Rate Blood Pressure 120/71 124/75 102/63 Pulse Oximetry 95 Oxygen Delivery Method Room Air 06/28/24 16:43 06/28/24 19:48 Temperature 98.7 F Pulse Rate 80 Respiratory Rate 18 Blood Pressure 121/78 120/62 Pulse Oximetry 98 Oxygen Delivery Method Room Air BMI result Body Mass Index 37.5 Labs 06/23/24 16:24 06/23/24 16:24 Medications Medications Current Medications Acetaminophen (Acetaminophen 325 Mg Tablet) 650 mg PO Q6H PRN PRN Reason: Headache/Pain Mild Scale (1-3) Last Admin: 06/26/24 06:55 Dose: 650 mg Al Hydroxide/Mg Hydroxide (Magnesium Hydrox/Alum Hydrox 30 Ml Oral.Susp) 30 ml PO Q6H PRN PRN Reason: Heartburn/Nausea Amphetamine/Dextroamphetamine (Amphetamine Mixed Salts 20 Mg Tablet) 20 mg PO BID@0900,1500 [facility] Last Admin: 06/28/24 15:09 Dose: 20 mg Celecoxib (Celecoxib 200 Mg Capsule) 200 mg PO DAILY [facility] Last Admin: 06/28/24 08:15 Dose: Not Given Clonidine HCl (Clonidine Hcl 0.1 Mg Tablet) 0.1 mg PO Q4H PRN; Protocol PRN Reason: moderate anxiety Last Admin: 06/28/24 16:43 Dose: 0.1 mg Clonidine HCl (Clonidine Hcl 0.1 Mg Tablet) 0.1 mg PO BEDTIME [facility]YAM; Protocol Last Admin: 06/28/24 21:01 Dose: 0.1 mg Duloxetine HCl (Duloxetine Hcl 30 Mg Capsule.Dr) 90 mg PO DAILY [facility] Last Admin: 06/28/24 08:47 Dose: 90 mg Levothyroxine Sodium (Levothyroxine Sodium 25 Mcg Tablet) 25 mcg PO BEDTIME [facility] Last Admin: 06/28/24 21:01 Dose: 25 mcg Magnesium Hydroxide (Milk Of Magnesia 30 Ml Oral.Susp) 30 ml PO DAILY PRN PRN Reason: Constipation Olanzapine (Olanzapine 5 Mg Tablet) 5 mg PO TID PRN PRN Reason: agitation/anger Last Admin: 06/27/24 22:53 Dose: 5 mg Trazodone HCl (Trazodone Hcl 50 Mg Tablet) 50 mg PO BEDTIME PRN PRN Reason: continued insomnia Trazodone HCl (Trazodone Hcl 100 Mg Tablet) 100 mg PO BEDTIME [facility] Last Admin: 06/28/24 21:01 Dose: 100 mg Valsartan (Valsartan 80 Mg Tablet) 80 mg PO DAILY [facility] Last Admin: 06/28/24 08:47 Dose: 80 mg Allergies Allergies Allergy/AdvReac Type Severity Reaction Status Date / Time No Known Drug Allergies Allergy Unknown UNKNOWN Verified 06/23/24 14:21 [NO KNOWN DRUG ALLERGIES] Assessment & Plan Assessment & Plan (1) MDD (major depressive disorder), recurrent severe, without psychosis: Status: Acute Code(s): F33.2 - Major depressive disorder, recurrent severe without psychotic features Plan HPI: Pt is a 51 yo female with hx of depression who presents to ED after [facility] (and ) had concerns for SI. Pt reports that she's been depressed and anxious over past months, both worsening post-Trump election. She endorses decreased energy, interest, appetite, sleep but denies any SI. Anxiety became overwhelming past weeks after Trump took office as she's worried about the rights of LGBT community which include her children. She says she agreed to go to [facility] for help with medication changes; she says her wanted her to go to [facility] due to some mistaken idea that she was suicidal, though patient is adamant she has no idea why (other than her wifes chronic anxiety). Pt says at [facility] the staff and insisted that she was suicidal and called 911 for her to go to ED. Patient became irate and refused to go; police insisted and pt was restrained to get her to ED and once she got to ED. Pt agrees that possibly, in the heat of anger with police she may have said something suicidal regarding her fathers gun...however she says she was not actually suicidal, was never feeling this way and would never kill herself, loving her son and family. She flately denies she made any other SI statements at all and wants discharge. Denies drug/alcohol. Collateral reports pt sent several text messages to family and friends, and endorsed plan to OD on medications, poisoning by carbon monoxide, and/or shooting self with her father's gun. Per report, collateral obtained with pt's , who stated that pt began to decompensate about two months ago surrounding the election, which worsened following the election results. Per report, pt fearful for her safety, as well as the safety of her and transgender child. Pt reportedly made statements of fear that her family would be sent to a concentration camp. In ED, patient told staff regarding SI, that she had some thoughts a few days ago but stated I don't anymore. Impression: pt adamantly denies any recent or past SI. She maintains that her partner has misinterpreted and grossly exaggerating anything patient may have said. She agrees she struggles with depression/anxiety but as not SI wants discharge and to work out her treatment w/ outpt providers. Pt is very unhappy with staff on unit feeling ignored and uncared for. Pt does give verbal and written permission to discuss case with her and mother. Hospital course: 06/28 patient doing much better, processing her feelings and considering rethinking her perspective on people. Good visit with the father; good visit with her . Feeling much more calm, with improved mood and a little more optimistic about her own stability. Patient discussing possible discharge next week PLAN: cv q15 min Increased Cymbalta to 90 mg Increase trazodone to 100 mg q.h.s. Added Zyprexa 5 mg p.r.n. for anger/agitation continue home med regimen will seek collateral Patient educated on: diagnosis, medication risk/benefits and therapeutic strategies Informed Consent: understands Reason for continued inpatient stay Substantial Risk for: stable for discharge Time Spent With Patient Time: Total time managing care of this patient today ____ minutes.
[2024-06-28] MEDS: Magnesium Hydrox/Alum Hydrox 30 ML ORAL.SUSP PO (21:34)
[2024-06-28] MEDS: OLANZapine 5 MG TABLET PO (23:31)
[2024-06-28] MEDS: traZODone HCL 50 MG TABLET PO (23:31)
[2024-06-29 08:00] VITALS: BP 128/61; PULSE 66; RESP 16; TEMP 36.4; O2SAT 97
--- NOTE | 2024-06-29 08:16 | P.PNPSI_ITS ---
Subjective Subjective Date of Service: 06/29/24 Reason For Visit: SECTION 12 SI UNCOOPERATIVE Interim History: Met with patient; discussed with team. Seen in room. Reports things are going really well no questions or concerns. Slept well last night . Appetite good. Looking forward to discharge planning. Reports being in the hospital has been helpful to minimize contact with social media and the news. Reports clonidine has been very effective for anxiety symptoms. Medication Compliance: Yes Side effects from medications: No Attending Groups: Intermittent Review of Systems Acute medical concerns: No Review of Systems Review of Systems unremarkable Mental Status Exam Mental Status Exam Narrative: Pt is alert and oriented; behavior is cooperative, friendly and calm; patient is not in distress; dressed in casual attire, with adequate hygiene and grooming; mood is described as good and affect congruent brighter, calm; eye contact appropriate; Speech is normal rate, volume and prosody and not pressured; no psychomotor agitation/retardation present; thought process is organized and goal directed; Thought content is on tx; otherwise pertinent to relevant topics and without any delusional content, paranoid ideations or grandiosity; denies any SI/HI. There is no evidence of perceptual disturbance. Patients insight and judgment appear intact. Diagnostics Vital Signs (24Hr): Vital Signs - 24 hr 06/28/24 12:47 06/28/24 16:43 06/28/24 19:48 Temperature 98.7 F Pulse Rate 80 Respiratory Rate 18 Blood Pressure 102/63 121/78 120/62 Pulse Oximetry 98 Oxygen Delivery Method Room Air BMI result Body Mass Index 37.5 Labs 06/23/24 16:24 06/23/24 16:24 Medications Medications Current Medications Acetaminophen (Acetaminophen 325 Mg Tablet) 650 mg PO Q6H PRN PRN Reason: Headache/Pain Mild Scale (1-3) Last Admin: 06/26/24 06:55 Dose: 650 mg Al Hydroxide/Mg Hydroxide (Magnesium Hydrox/Alum Hydrox 30 Ml Oral.Susp) 30 ml PO Q6H PRN PRN Reason: Heartburn/Nausea Last Admin: 06/28/24 21:34 Dose: 30 ml Amphetamine/Dextroamphetamine (Amphetamine Mixed Salts 20 Mg Tablet) 20 mg PO BID@0900,1500 [facility] Last Admin: 06/28/24 15:09 Dose: 20 mg Celecoxib (Celecoxib 200 Mg Capsule) 200 mg PO DAILY [facility] Last Admin: 06/28/24 08:15 Dose: Not Given Clonidine HCl (Clonidine Hcl 0.1 Mg Tablet) 0.1 mg PO Q4H PRN; Protocol PRN Reason: moderate anxiety Last Admin: 06/28/24 16:43 Dose: 0.1 mg Clonidine HCl (Clonidine Hcl 0.1 Mg Tablet) 0.1 mg PO BEDTIME [facility]; Protocol Last Admin: 06/28/24 21:01 Dose: 0.1 mg Duloxetine HCl (Duloxetine Hcl 30 Mg Capsule.Dr) 90 mg PO DAILY [facility] Last Admin: 06/28/24 08:47 Dose: 90 mg Levothyroxine Sodium (Levothyroxine Sodium 25 Mcg Tablet) 25 mcg PO BEDTIME [facility] Last Admin: 06/28/24 21:01 Dose: 25 mcg Magnesium Hydroxide (Milk Of Magnesia 30 Ml Oral.Susp) 30 ml PO DAILY PRN PRN Reason: Constipation Olanzapine (Olanzapine 5 Mg Tablet) 5 mg PO TID PRN PRN Reason: agitation/anger Last Admin: 06/28/24 23:31 Dose: 5 mg Trazodone HCl (Trazodone Hcl 50 Mg Tablet) 50 mg PO BEDTIME PRN PRN Reason: continued insomnia Last Admin: 06/28/24 23:31 Dose: 50 mg Trazodone HCl (Trazodone Hcl 100 Mg Tablet) 100 mg PO BEDTIME [facility] Last Admin: 06/28/24 21:01 Dose: 100 mg Valsartan (Valsartan 80 Mg Tablet) 80 mg PO DAILY [facility] Last Admin: 06/28/24 08:47 Dose: 80 mg Allergies Allergies Allergy/AdvReac Type Severity Reaction Status Date / Time No Known Drug Allergies Allergy Unknown UNKNOWN Verified 06/23/24 14:21 [NO KNOWN DRUG ALLERGIES] Assessment & Plan Assessment & Plan (1) MDD (major depressive disorder), recurrent severe, without psychosis: Status: Acute Code(s): F33.2 - Major depressive disorder, recurrent severe without psychotic features Plan HPI: Pt is a 51 yo female with hx of depression who presents to ED after [facility] (and ) had concerns for SI. Pt reports that she's been depressed and anxious over past months, both worsening post-Trump election. She endorses decreased energy, interest, appetite, sleep but denies any SI. Anxiety became overwhelming past weeks after Trump took office as she's worried about the rights of LGBT community which include her children. She says she agreed to go to [facility] for help with medication changes; she says her wanted her to go to [facility] due to some mistaken idea that she was suicidal, though patient is adamant she has no idea why (other than her wifes chronic anxiety). Pt says at [facility] the staff and insisted that she was suicidal and called 911 for her to go to ED. Patient became irate and refused to go; police insisted and pt was restrained to get her to ED and once she got to ED. Pt agrees that possibly, in the heat of anger with police she may have said something suicidal regarding her fathers gun...however she says she was not actually suicidal, was never feeling this way and would never kill herself, loving her son and family. She flately denies she made any other SI statements at all and wants discharge. Denies drug/alcohol. Collateral reports pt sent several text messages to family and friends, and endorsed plan to OD on medications, poisoning by carbon monoxide, and/or shooting self with her father's gun. Per report, collateral obtained with pt's , who stated that pt began to decompensate about two months ago surrounding the election, which worsened following the election results. Per report, pt fearful for her safety, as well as the safety of her and transgender child. Pt reportedly made statements of fear that her family would be sent to a concentration camp. In ED, patient told staff regarding SI, that she had some thoughts a few days ago but stated I don't anymore. Impression: pt adamantly denies any recent or past SI. She maintains that her partner has misinterpreted and grossly exaggerating anything patient may have said. She agrees she struggles with depression/anxiety but as not SI wants discharge and to work out her treatment w/ outpt providers. Pt is very unhappy with staff on unit feeling ignored and uncared for. Pt does give verbal and written permission to discuss case with her and mother. Hospital course: 06/28 patient doing much better, processing her feelings and considering rethinking her perspective on people. Good visit with the father; good visit with her . Feeling much more calm, with improved mood and a little more optimistic about her own stability. Patient discussing possible discharge next week 2/8: no changes PLAN: cv q15 min Increased Cymbalta to 90 mg Increase trazodone to 100 mg q.h.s. Added Zyprexa 5 mg p.r.n. for anger/agitation continue home med regimen will seek collateral Reason for continued inpatient stay Substantial Risk for: rapid decompensation Time Spent With Patient Time: Total time managing care of this patient today ____ minutes.
[2024-06-29] MEDS: Amphetamine Mixed Salts 20 MG TABLET PO ×2 (08:44→14:46)
[2024-06-29] MEDS: DULoxetine HCl 30 MG CAPSULE.DR 90 MG PO (08:45)
[2024-06-29] MEDS: Valsartan 80 MG TABLET PO (08:45)
[2024-06-29] MEDS: cloNIDine HCL 0.1 MG TABLET PO ×4 (08:45→21:13)
[2024-06-29 13:06] VITALS: BP 111/80
[2024-06-29 16:59] VITALS: BP 129/78
[2024-06-29 19:36] VITALS: BP 116/59; PULSE 85; RESP 18; TEMP 36.7; O2SAT 96
[2024-06-29] MEDS: Levothyroxine Sodium 25 MCG TABLET PO (21:13)
[2024-06-29] MEDS: OLANZapine 5 MG TABLET PO (21:14)
[2024-06-29] MEDS: traZODone HCL 50 MG TABLET PO (21:14)
[2024-06-30 07:54] VITALS: BP 101/55; PULSE 64; RESP 20; TEMP 36.4; O2SAT 97
[2024-06-30] MEDS: DULoxetine HCl 30 MG CAPSULE.DR 90 MG PO (08:23)
[2024-06-30] MEDS: Valsartan 80 MG TABLET PO (08:24)
[2024-06-30] MEDS: Amphetamine Mixed Salts 20 MG TABLET PO ×2 (08:24→14:44)
[2024-06-30] MEDS: cloNIDine HCL 0.1 MG TABLET PO ×4 (08:24→21:20)
--- NOTE | 2024-06-30 11:21 | HO.PSYCHPN ---
Subjective Subjective Date of Service: 06/30/24 Reason For Visit: SECTION 12 SI UNCOOPERATIVE Interim History: Met with patient; discussed with team. Seen in room . Overall continues to report things have gone really well. Appropriate anxiety around disposition planning and symptoms returning, given hospital environment versus community environment with stressors and access to social media and news etc.. Sleep energy and appetite good. Looking forward to discharge planning tomorrow and also requesting follow-up with community mental health services, as that is something which has been very challenging for her to secure before hospital. Also hopeful that medication can be feels at a local pharmacy before a medication intake appointment. Medication Compliance: Yes Side effects from medications: No Attending Groups: Yes Review of Systems Acute medical concerns: No Review of Systems Review of Systems unremarkable Mental Status Exam Mental Status Exam Narrative: Pt is alert and oriented; behavior is cooperative, friendly and calm; patient is not in distress; dressed in casual attire, with adequate hygiene and grooming; mood is described as good and affect congruent brighter, calm; eye contact appropriate; Speech is normal rate, volume and prosody and not pressured; no psychomotor agitation/retardation present; thought process is organized and goal directed; Thought content is on tx; otherwise pertinent to relevant topics and without any delusional content, paranoid ideations or grandiosity; denies any SI/HI. There is no evidence of perceptual disturbance. Patients insight and judgment appear intact. Diagnostics Vital Signs (24Hr): Vital Signs - 24 hr 06/29/24 13:06 06/29/24 16:59 06/29/24 19:36 Temperature 98.1 F Pulse Rate 85 Respiratory Rate 18 Blood Pressure 111/80 129/78 116/59 L Pulse Oximetry 96 Oxygen Delivery Method Room Air 06/30/24 07:54 Temperature 97.5 F Pulse Rate 64 Respiratory Rate 20 Blood Pressure 101/55 L Pulse Oximetry 97 Oxygen Delivery Method Room Air BMI result Body Mass Index 37.5 Labs 06/23/24 16:24 06/23/24 16:24 Medications Medications Current Medications Acetaminophen (Acetaminophen 325 Mg Tablet) 650 mg PO Q6H PRN PRN Reason: Headache/Pain Mild Scale (1-3) Last Admin: 06/26/24 06:55 Dose: 650 mg Al Hydroxide/Mg Hydroxide (Magnesium Hydrox/Alum Hydrox 30 Ml Oral.Susp) 30 ml PO Q6H PRN PRN Reason: Heartburn/Nausea Last Admin: 06/28/24 21:34 Dose: 30 ml Amphetamine/Dextroamphetamine (Amphetamine Mixed Salts 20 Mg Tablet) 20 mg PO BID@0900,1500 [facility] Last Admin: 06/30/24 08:24 Dose: 20 mg Celecoxib (Celecoxib 200 Mg Capsule) 200 mg PO DAILY PAYAM Last Admin: 06/30/24 08:26 Dose: Not Given Clonidine HCl (Clonidine Hcl 0.1 Mg Tablet) 0.1 mg PO Q4H PRN; Protocol PRN Reason: moderate anxiety Last Admin: 06/30/24 08:24 Dose: 0.1 mg Clonidine HCl (Clonidine Hcl 0.1 Mg Tablet) 0.1 mg PO BEDTIME PAYAM; Protocol Last Admin: 06/29/24 21:13 Dose: 0.1 mg Duloxetine HCl (Duloxetine Hcl 30 Mg Capsule.Dr) 90 mg PO DAILY [facility] Last Admin: 06/30/24 08:23 Dose: 90 mg Levothyroxine Sodium (Levothyroxine Sodium 25 Mcg Tablet) 25 mcg PO BEDTIME PAYAM Last Admin: 06/29/24 21:13 Dose: 25 mcg Magnesium Hydroxide (Milk Of Magnesia 30 Ml Oral.Susp) 30 ml PO DAILY PRN PRN Reason: Constipation Olanzapine (Olanzapine 5 Mg Tablet) 5 mg PO TID PRN PRN Reason: agitation/anger Last Admin: 06/29/24 21:14 Dose: 5 mg Trazodone HCl (Trazodone Hcl 50 Mg Tablet) 50 mg PO BEDTIME PRN PRN Reason: continued insomnia Last Admin: 06/29/24 21:14 Dose: 50 mg Trazodone HCl (Trazodone Hcl 100 Mg Tablet) 100 mg PO BEDTIME PAYAM Last Admin: 06/29/24 22:10 Dose: Not Given Valsartan (Valsartan 80 Mg Tablet) 80 mg PO DAILY PAYAM Last Admin: 06/30/24 08:24 Dose: 80 mg Allergies Allergies Allergy/AdvReac Type Severity Reaction Status Date / Time No Known Drug Allergies Allergy Unknown UNKNOWN Verified 06/23/24 14:21 [NO KNOWN DRUG ALLERGIES] Assessment & Plan Assessment & Plan (1) MDD (major depressive disorder), recurrent severe, without psychosis: Status: Acute Code(s): F33.2 - Major depressive disorder, recurrent severe without psychotic features Plan HPI: Pt is a 51 yo female with hx of depression who presents to ED after [facility] (and ) had concerns for SI. Pt reports that she's been depressed and anxious over past months, both worsening post-Trump election. She endorses decreased energy, interest, appetite, sleep but denies any SI. Anxiety became overwhelming past weeks after [place] took office as she's worried about the rights of LGBT community which include her children. She says she agreed to go to [facility] for help with medication changes; she says her wanted her to go to [facility] due to some mistaken idea that she was suicidal, though patient is adamant she has no idea why (other than her wifes chronic anxiety). Pt says at [facility] the staff and insisted that she was suicidal and called 911 for her to go to ED. Patient became irate and refused to go; police insisted and pt was restrained to get her to ED and once she got to ED. Pt agrees that possibly, in the heat of anger with police she may have said something suicidal regarding her fathers gun...however she says she was not actually suicidal, was never feeling this way and would never kill herself, loving her son and family. She flately denies she made any other SI statements at all and wants discharge. Denies drug/alcohol. Collateral reports pt sent several text messages to family and friends, and endorsed plan to OD on medications, poisoning by carbon monoxide, and/or shooting self with her father's gun. Per report, collateral obtained with pt's , who stated that pt began to decompensate about two months ago surrounding the election, which worsened following the election results. Per report, pt fearful for her safety, as well as the safety of her and transgender child. Pt reportedly made statements of fear that her family would be sent to a concentration camp. In ED, patient told staff regarding SI, that she had some thoughts a few days ago but stated I don't anymore. Impression: pt adamantly denies any recent or past SI. She maintains that her partner has misinterpreted and grossly exaggerating anything patient may have said. She agrees she struggles with depression/anxiety but as not SI wants discharge and to work out her treatment w/ outpt providers. Pt is very unhappy with staff on unit feeling ignored and uncared for. Pt does give verbal and written permission to discuss case with her and mother. Hospital course: 06/28 patient doing much better, processing her feelings and considering rethinking her perspective on people. Good visit with the father; good visit with her . Feeling much more calm, with improved mood and a little more optimistic about her own stability. Patient discussing possible discharge next week 06/29: no changes 06/30: No changes. Looking forward to discharge. Hopeful for referrals to local [facility] prescribers and also bridge prescriptions PLAN: cv q15 min Increased Cymbalta to 90 mg Increase trazodone to 100 mg q.h.s. Added Zyprexa 5 mg p.r.n. for anger/agitation continue home med regimen will seek collateral Reason for continued inpatient stay Substantial Risk for: rapid decompensation Time Spent With Patient Time: Total time managing care of this patient today ____ minutes.
[2024-06-30 12:25] VITALS: BP 119/86
[2024-06-30 17:12] VITALS: BP 101/66
[2024-06-30 20:00] VITALS: BP 120/75; PULSE 80; RESP 15; TEMP 36.9; O2SAT 97
[2024-06-30] MEDS: Levothyroxine Sodium 25 MCG TABLET PO (21:20)
[2024-06-30] MEDS: OLANZapine 5 MG TABLET PO (21:20)
[2024-06-30] MEDS: traZODone HCL 100 MG TABLET PO (21:21)
[2024-07-01 07:45] VITALS: BP 139/74; PULSE 62; RESP 18; TEMP 36.6; O2SAT 96
[2024-07-01] MEDS: Valsartan 80 MG TABLET PO (08:02)
[2024-07-01] MEDS: cloNIDine HCL 0.1 MG TABLET PO (08:02)
[2024-07-01] MEDS: Amphetamine Mixed Salts 20 MG TABLET PO (08:02)
[2024-07-01] MEDS: DULoxetine HCl 30 MG CAPSULE.DR 90 MG PO (08:02)
--- NOTE | 2024-07-01 09:20 | P.DS_ITS ---
DS: Providers Provider Date of Service: 07/01/24 Date of admission: 06/24/24 14:12 Date of discharge: 07/01/24 Primary care physician: Unknown Physician Attending physician on admission: Nate Hopper Attending physician on discharge: Nate Hopper DS: Diagnosis Discharge Diagnosis (1) MDD (major depressive disorder), recurrent severe, without psychosis: Status: Acute DS: Medications Discharge Medications Home Medications: Home Medications ?Medication ?Instructions ?Recorded ?Confirmed celecoxib 200 mg capsule 200 mg PO DAILY 06/23/24 06/23/24 dextroamphetamine-amphetamine 20 1 tab PO BID 06/23/24 06/23/24 mg tablet duloxetine 60 mg capsule,delayed 60 mg PO DAILY 06/23/24 06/23/24 release gabapentin 100 mg capsule 100 mg PO BID PRN Pain 06/23/24 06/23/24 hydroxyzine HCl 50 mg tablet 50 mg PO DAILY PRN Anxiety 06/23/24 06/23/24 levothyroxine 25 mcg tablet 25 mcg PO DAILY 06/23/24 06/23/24 semaglutide (weight loss) 0.25 0.25 mg subcut QWEEK 06/23/24 06/23/24 mg/0.5 mL subcutaneous pen injector (Wegovy) quetiapine 50 mg tablet 50 mg PO BEDTIME 06/25/24 06/25/24 Mental Status Exam Mental Status Exam Narrative: Pt is alert and oriented; behavior is cooperative, friendly and calm; patient is not in distress; dressed in casual attire with good hygiene; mood is described as good and affect congruent; eye contact appropriate; Speech is normal rate, volume and prosody and not pressured; no psychomotor agitation/retardation present; thought process is organized and goal directed; Thought content is on tx; otherwise pertinent to relevant topics and without any delusional content, paranoid ideations or grandiosity; denies any SI/HI. There is no evidence of perceptual disturbance. Patients insight and judgment fair Data Data Completed and Pending Completed studies during hospitalization [Text1]: 06/25/24 07:47 Estimat Average Glucose 105 Hemoglobin A1c % 5.3 Magnesium 1.9 Triglycerides 160 H Cholesterol 157 LDL Cholesterol, Calc 69 HDL Cholesterol 56 Vitamin B12 475 Folate 10.1 TSH 3.84 Free T4 1.33 DS: Summary Hospital Course Hospital Course: HPI: Pt is a 51 yo female with hx of depression who presents to ED after [facility] (and ) had concerns for SI. Pt reports that she's been depressed and anxious over past months, both worsening post-Trump election. She endorses decreased energy, interest, appetite, sleep but denies any SI. Anxiety became overwhelming past weeks after [place] took office as she's worried about the rights of LGBT community which include her children. She says she agreed to go to [facility] for help with medication changes; she says her wanted her to go to [facility] due to some mistaken idea that she was suicidal, though patient is adamant she has no idea why (other than her wifes chronic anxiety). Pt says at [facility] the staff and insisted that she was suicidal and called 911 for her to go to ED. Patient became irate and refused to go; police insisted and pt was restrained to get her to ED and once she got to ED. Pt agrees that possibly, in the heat of anger with police she may have said something suicidal regarding her fathers gun...however she says she was not actually suicidal, was never feeling this way and would never kill herself, loving her son and family. She flately denies she made any other SI statements at all and wants discharge. Denies drug/alcohol. Collateral reports (none of which were able to be substantiated) pt sent several text messages to family and friends, and endorsed plan to OD on medications, poisoning by carbon monoxide, and/or shooting self with her father's gun (alessio ent said that maybe, in a heated exchange with police who were forcing her to get in the car to go to the hospital, she may have said something referencing this; however she maintains it was just out of anger and never with any intent or plans at all). Per report, collateral obtained with pt's , who stated that pt began to decompensate about two months ago surrounding the election, which worsened following the election results. Per report, pt fearful for her safety, as well as the safety of her and transgender child. Pt reportedly made statements of fear that her family would be sent to a concentration camp. In ED, patient told staff regarding SI, that she had some thoughts a few days ago but stated I don't anymore. Hospital course: On admission pt adamantly denies any recent or past SI. She maintains that her partner has misinterpreted and grossly exaggerating anything patient may have said. She agrees she struggles with depression/anxiety but as not SI wants discharge and to work out her treatment w/ outpt providers. Pt is very unhappy with staff on unit feeling ignored and uncared for. Pt does give verbal and written permission to discuss case with her and mother. However, patient was soon able to calmed down and thus forward was cooperative, polite, engaged in treatment, friendly and very willing to discuss events and symptoms. Patient remained in good behavioral and impulse control throughout her time in the unit and was appropriate with peers and staff and engaged in treatment. She maintained throughout her time on the unit that she was never suicidal at any point; however she did acknowledge she made comments and did send provocative texts to family however she maintained that this was only out of depression, anxiety and anger at them for not supporting her deeply seeded fears about her/family's vulnerability in current administration. Discussed medication management and she agreed to increase Cymbalta and use trazodone for sleep instead of Seroquel; discontinued Abilify several and found clonidine helpful as a p.r.n. for sleep. Patient's mood significantly improved and depression abated. She remained anxious about political climate and what she will do however she feels much more in control and able to think much more clearly about how she will manage the situation; also considering an alternative perspective on her family, considering that perhaps they do care about her despite there political persuasion. Patient remained with good mood, safe, optimistic, future oriented and feeling back to her regular self. Patient felt ready for discharge and eager to return to her family and get back to work. Patient has appointments established with providers with whom she has a good rapport. She is returning back to her supportive and family. Patient is not in imminent risk for harm to self or others and appropriate to return to the community for treatment. Request for discharge honored. Medications: Increase Cymbalta to 90 mg Started Trazodone 100 mg scheduled for sleep Started Clonidine 0.1 mg q.h.s. for insomnia and has p.r.n. for anxiety Started Zyprexa 5 mg p.r.n. for agitation DC Abilify DC Seroquel Medication history Lexapro: Brains zaps Zoloft: Mitch Prozac 80 mg worked well for 20 years but then no longer was effective; has been off for 45 years. Did cause excessive sweatiness History of lithium: Took away depression but left patient feeling like a zombie Time spent discussing smoking cessation with patient: 3 to 10 minutes Status at Discharge Functional status at discharge: independent ambulation Overall status at discharge: patient is back to baseline Time Spent with Patient Time attestation: Total time managing care of this patient today __40__ minutes. Time spent: Greater than 30 minutes Specific discharge activities: Met with patient; discussed with team; prescriptions; charting Discharge Plan Discharge Anticipated Discharge Date/Time: 07/01/24 11:01 Patient Disposition: Home, Self-Care Discharge Diagnosis: MDD, recurrent, severe w/out psychosis, in remission Referrals: [facility] Therapy w Joi Yohannes [Other] - 07/01/24 2:00 pm (Social Work called to leave a message for Joi and was also given your standing appt date and time. ) Psychiatry with [facility] [Other] - 1 Week (Contact at [phone] to send discharge packet. ) [facility] [Other] - 1 Week (Patient requested referral to [facility] for therapy and psychiatric medication management Agency will follow-up with appointments after discharge ) Roel Schneider MD [Physician] - 07/04/24 10:45 am (In office appointment ) Discharge Medications: New clonidine HCl 0.1 mg Tablet 0.1 mg PO Q4H PRN (Reason: moderate anxiety/insomnia) 30 Days Qty: 120 0RF Protocol: Hold for SBP< HOLD for SBP < : 90 valsartan 80 mg Tablet 80 mg PO DAILY 30 Days Qty: 30 0RF duloxetine 30 mg Capsule,Delayed Release(Dr/Ec) 30 mg PO DAILY 30 Days Qty: 30 0RF Rx Instructions: take with 60mg capsule olanzapine 5 mg Tablet 5 mg PO BID PRN (Reason: agitation/anger) 30 Days Qty: 30 0RF trazodone 100 mg Tablet 100 mg PO BEDTIME 30 Days Qty: 30 0RF Continued celecoxib 200 mg capsule 200 mg PO DAILY Wegovy 0.25 mg/0.5 mL pen injector 0.25 mg subcut QWEEK levothyroxine 25 mcg tablet 25 mcg PO DAILY 30 Days Qty: 30 0RF duloxetine 60 mg capsule,delayed release(DR/EC) 60 mg PO DAILY 30 Days Qty: 30 0RF Rx Instructions: take with 30mg capsule Changed dextroamphetamine-amphetamine 20 mg tablet 1 tab PO BID@0900,1300 30 Days Qty: 60 0RF Discontinued hydroxyzine HCl 50 mg tablet 50 mg PO DAILY PRN (Reason: Anxiety) gabapentin 100 mg capsule 100 mg PO BID PRN (Reason: Pain) quetiapine 50 mg tablet 50 mg PO BEDTIME Patient Comments: Lat picked up 04/02/24, 90 day supply, most appear to remain in med bottle Discharge Orders: Discharge Order (Routine); Ordered 07/01/24 Ordered By: Nate Hopper Diet: Regular diet Activity on Discharge: As tolerated Stand Alone Forms: Patient Portal Discharge page, Community Support Print Language: [place] Care Plan Goals: Maintain mood and safe behaviors Take medications as prescribed Practice coping skills Continue with outpatient providers and reach out to them as needed Health Concerns: Mood stability and behaviors Plan of Treatment: Follow up with your PCP, psychiatric provider and other outpatient providers regarding above concerns Take medications as prescribed Assessment: Risk assessment at time of discharge:? Patient was interviewed prior to discharge and found to be fully oriented and without any SI or HI. Patient has improved insight and judgment and wants to continue treatment. Patient is not in imminent risk of harm to self or others and has a safety plan that includes presenting to the closest ER or calling 911 if feeling unsafe.? Patient has been observed closely by nursing and unit staff throughout admission; patient has not engaged in any behaviors that suggest dangerousness to self or others and has demonstrated appropriate behaviors and impulse control Discharge Date/Time: 07/01/24 11:45
[2024-07-01] MEDS: OLANZapine 5 MG TABLET PO (11:25)
== END 2024-07-01 11:45 | disposition home or self-care (01) | DRG 885 ==
LOC: HO.ED 06-24 11:20 → HO.PM5 06-24 14:24
PROVIDERS: Physician Assistant; Admitting Provider Clinical Nurse Specialist Psychiatric/Mental Health, Adult; Emergency Provider Emergency Medicine; Visit Provider Psychiatry & Neurology Psychiatry
DX: F33.2 Major depressive disorder, recurrent severe without psychotic features (principal); R45.851 Suicidal ideations; F43.10 Post-traumatic stress disorder, unspecified; Z23 Encounter for immunization; Z79.890 Hormone replacement therapy; Z79.899 Other long term (current) drug therapy
CPT/HCPCS: 36415; 80053; 80061; 80307; 81001; 82375; 82607; 82746; 83036; 83735; 84439; 84443; 85025; 90656; 93005; 99285; J1200; J1630; J2060; S9485

== ENCOUNTER 2024-06-24 14:12 | Outpatient (BNV) | payer OTHER, SELFPAY | END 2024-06-26 10:35 | PROVIDERS: Admitting Provider Clinical Nurse Specialist Psychiatric/Mental Health, Adult; Emergency Provider Emergency Medicine; Visit Provider Internal Medicine Cardiovascular Disease | DX: Z13.6 Encounter for screening for cardiovascular disorders (principal) | CPT/HCPCS: 93010 ==

== ENCOUNTER → 2024-06-24 14:12 | Outpatient (BNV) | payer OTHER, SELFPAY | PROVIDERS: Admitting Provider Clinical Nurse Specialist Psychiatric/Mental Health, Adult; Emergency Provider Emergency Medicine; Visit Provider Psychiatry & Neurology Psychiatry | DX: F33.2 Major depressive disorder, recurrent severe without psychotic features (principal) | CPT/HCPCS: 90792 ==